=== PATIENT | female | born 1970 | race Caucasian/White ===

== ENCOUNTER → 2017-07-05 | Outpatient (CLI) | payer OTHER ==
[2017-07-05 15:36] LABS: CSF RBC < 2 10^3/uL (<2)
[2017-07-05 15:37] LABS: APPEARANCE, CSF CLEAR (CLEAR); COLOR, CSF COLORLESS (COLORLESS); CSF DIFF IF INDICATED? NO (NO); CSF TUBE# CELL CNT TUBE 1; CSF WBC 3 /uL (0-10)
[2017-07-05 15:52] LABS: CSF TUBE# GLU TUBE 1; CSF TUBE# TP TUBE 1; GLUCOSE CSF 64 MG/DL (40-75); TOTAL PROTEIN,CSF 62.4 MG/DL (15-45)
[2017-07-06 10:25] LABS: CSF GROUP B STREP NEGATIVE (NEGATIVE); CSF H. INFLUENZA NEGATIVE (NEGATIVE); CSF N MENINGITIDIS ACYW135 NEGATIVE (NEGATIVE); CSF STREP PNUEMO NEGATIVE (NEGATIVE); CSF TUBE# BACT AG TUBE 1
[2017-07-10 06:48] LABS: OLIGOCLONAL BANDS, CSF 1 Faint Band (No Bands)
[2017-07-11 00:06] LABS: IMMUNOGLOBULIN G CSF 2.8 mg/dL (0.0-8.6)
== END ==
LOC: M RADPRO 13:31
DX: G93.2 Benign intracranial hypertension (principal); M79.7 Fibromyalgia; E66.01 Morbid (severe) obesity due to excess calories; M54.81 Occipital neuralgia; H47.20 Unspecified optic atrophy; H54.7 Unspecified visual loss; Z79.891 Long term (current) use of opiate analgesic; Z79.899 Other long term (current) drug therapy; Z91.048 Other nonmedicinal substance allergy status
CPT/HCPCS: 62270